=== PATIENT | female | born 1990 | race American Indian/Alaskan Native ===

== ENCOUNTER 2017-03-15 19:13 | Emergency (ER) | payer BC ==
[2017-03-15] MEDS ORDERED: ZOFRAN ONE (19:22)
[2017-03-15] MEDS ORDERED: ZOFRAN IV ONE ×2 (19:26→22:01)
--- NOTE | 2017-03-15 19:56 | Emergency Department Report ---
HPI - General Chief Complaint: Chest Pain Time Seen by Provider: 03/15/17 19:27 - HPI HPI: This is a 26-year-old Afro-[place]i female who presents to the emergency department via EMS from home with complaint of chest pain and some nausea without vomiting. Patient says that the symptoms began yesterday and have been going on since. She was given 325 mg of aspirin and 1 nitroglycerin sublingual prior to presentation with EMS without much relief. She has a history of previous WI and one stent placed about 2 years ago. 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 She is on Coumadin and says she is compliant with the medications. She says that she had a stress test about 6 months ago. She has a primary care physician but cannot really her name. Her prison guard is Ismael Arevalo. ED Past Medical Hx - Past Medical History Previous Medical History?: Yes Hx Heart Attack/AMI: Yes - Surgical History Past Surgical History?: No - Social History Smoking Status: Never Smoker ED Review of Systems ROS: Stated complaint: CHEST PAIN Other details as noted in HPI Comment: All other systems reviewed and negative Constitutional: denies: chills, fever Eyes: denies: eye pain, eye discharge, vision change ENT: denies: ear pain, throat pain Respiratory: denies: cough, wheezing Cardiovascular: chest pain. denies: palpitations Gastrointestinal: nausea. denies: abdominal pain, vomiting, diarrhea Genitourinary: denies: urgency, dysuria, discharge Musculoskeletal: denies: back pain, joint swelling, arthralgia Skin: denies: rash, lesions Neurological: denies: headache, weakness, paresthesias Physical Exam - Physical Exam Vital Signs: Vital Signs 03/15/17 19:20 Temperature 98.3 F Pulse Rate 66 Respiratory 20 Rate Blood Pressure 131/88 O2 Sat by Pulse 99 Oximetry Physical Exam: GENERAL: The patient is well-developed well-nourished. HEENT: Normocephalic. Atraumatic. Extraocular motions are intact. Patient has moist mucous membranes. Pupils equal reactive to light bilaterally. NECK: Supple. Trachea is midline. CHEST/LUNGS: Clear to auscultation. There is no respiratory distress noted. HEART/CARDIOVASCULAR: Regular. There is no tachycardia. There is no gallop rub or murmur. ABDOMEN: Abdomen is soft, nontender. Patient has normal bowel sounds. There is no abdominal distention. SKIN: Skin is warm and dry. NEURO: The patient is awake, alert, and oriented. The patient is cooperative. The patient has no focal neurologic deficits. The patient has normal speech. MUSCULOSKELETAL: There is no tenderness or deformity. There is no limitation range of motion. There is no evidence of acute injury. ED Course Vital Signs 03/15/17 19:20 Temperature 98.3 F Pulse Rate 66 Respiratory 20 Rate Blood Pressure 131/88 O2 Sat by Pulse 99 Oximetry ED Medical Decision Making - Lab Data Result diagrams: 03/15/17 19:56 03/15/17 19:56 - EKG Data -: EKG Interpreted by Me EKG shows normal: sinus rhythm, axis (LAD), intervals, QRS complexes (left anterior fascicular block, Q waves to the inferior leads,), ST-T waves (T-wave inversions to the lateral leads) Rate: normal - EKG Data When compared to previous EKG there are: previous EKG unavailable Interpretation: other (sinus rhythm, left axis deviation, left anterior fascicular block, Q waves in inferior leads, T-wave inversions to the anterior lateral leads) - Radiology Data Radiology results: image reviewed interpreted by me: Chest x-ray does not show any obvious pneumonia, pleural effusions, pneumothorax or any acute process. - Medical Decision Making This is a 26-year-old Afro-[place]i female presents to the emergency department with complaint of some chest discomfort and nausea without vomiting. There was some radiation down the left arm. Her EKG does not show any signs of ST elevation WI. Labs are mostly unremarkable with negative troponins 2 and a negative d-dimer. Her vital signs were stable throughout her ED course. There are no signs of infection. Chest x-ray does not show any pneumonia, pleural effusions or pneumothorax or any acute process. The patient already received aspirin in route. She was given something for pain and nausea here. She was reevaluated multiple times over multiple hours and a few of the times during reevaluation the patient was sleeping comfortably in the room on the [facility]. When she was woken up she says she is feeling improved. Patient had a negative stress test within the last 6 months. She has good follow-up with both primary care and cardiology. For all these reasons, the patient appears safe for discharge home at this time. She's been encouraged to return to the emergency department with any worsening of her symptoms or any acute distress. HEART Score for Major Cardiac Events from [email or web address] on 03/16/2017 All calculations should be rechecked by clinician prior to use RESULT SUMMARY: 3 points Low Score (0-3 points) Risk of MACE of 0.9-1.7%. INPUTS: History > 1 = Moderately suspicious EKG > 0 = Normal Age > 0 = < 45 Risk factors > 2 = 3 risk factors or history of atherosclerotic disease Troponin > 0 = normal limit - Differential Diagnosis WI, PE, pneumonia, CHF Critical Care Time: No Critical care attestation.: If time is entered above; I have spent that time in minutes in the direct care of this critically ill patient, excluding procedure time. ED Disposition Clinical Impression: Nausea, Subtherapeutic international normalized ratio (INR) Chest pain Qualifiers: Chest pain type: unspecified Qualified Code(s): R07.9 - Chest pain, unspecified Disposition: DISCHARGED TO HOME OR SELFCARE Is pt being admited?: No Condition: Stable Instructions: Chest Pain (ED) Additional Instructions: Please follow-up with your primary care doctor and prison guard in the next few days. Return to the emergency department with any worsening of your symptoms or any acute distress. Referrals: YOLANDA BUITRAGO [Other] - [facility] Time of Disposition: 00:53
[2017-03-15 20:07] LABS: Basophils % (Auto) 0.6 % (0.0-1.8); Eosinophils % (Auto) 1.1 % (0.0-4.3); Hematocrit 37.3 % (30.3-42.9); Hemoglobin 11.7 gm/dl (10.1-14.3); Mean Corpuscular HGB Conc 31 % (30-34); Mean Corpuscular Hemoglobin 22 pg (28-32); Mean Corpuscular Volume 69 fl (79-97); Platelet Count 289 K/mm3 (140-440); Red Blood Count 5.42 M/mm3 (3.65-5.03); Red Cell Distribution Width 15.9 % (13.2-15.2); White Blood Count 7.6 K/mm3 (4.5-11.0)
[2017-03-15 20:17] LABS: INR 1.73 (0.87-1.13)
[2017-03-15 20:18] LABS: Partial Thromboplastin Time 29.8 Sec. (24.2-36.6)
[2017-03-15 20:32] LABS: Alanine Aminotransferase 14 units/L (7-56); Albumin 3.4 g/dL (3.9-5); Albumin/Globulin Ratio 1.3 %; Anion Gap 15 mmol/L; BUN/Creatinine Ratio 16.66; Blood Urea Nitrogen 10 mg/dL (7-17); Calcium 8.8 mg/dL (8.4-10.2); Carbon Dioxide 24 mmol/L (22-30); Chloride 105.7 mmol/L (98-107); Creatine Kinase 65 units/L (30-135); Glucose 91 mg/dL (65-100); Lipase 61 units/L (13-60); Potassium 3.5 mmol/L (3.6-5.0); Sodium 141 mmol/L (137-145); Total Protein 6.1 g/dL (6.3-8.2)
[2017-03-15] MEDS ORDERED: MORPHINE IV ONE (20:35)
[2017-03-15 20:49] LABS: Urine Drugs of Abuse Note Disclamer
[2017-03-15 20:58] LABS: Bilirubin,Urine NEG (Negative); Blood,Urine NEG (Negative); Ketones,Urine NEG (Negative); Leukocyte Esterase,Urine NEG (Negative); Mucus,Urine FEW /HPF; Nitrite,Urine NEG (Negative); Protein,Urine <15 mg/dL mg/dL (Negative)
[2017-03-15 21:10] LABS: Creatine Kinase MB < 1.0 ng/mL (0.0-4.0)
[2017-03-15 21:15] LABS: Alkaline Phosphatase 55 units/L (35-129)
[2017-03-16 00:56] VITALS: BP 107/64
--- NOTE | 2017-03-16 08:24 | XRay Report ---
AP CHEST : 03/15/17 19:13:00 CLINICAL: Chest pain. COMPARISON:None FINDINGS: Normal heart and pulmonary vessels. The lungs are underexpanded but clear. The bones and soft tissues are unremarkable. IMPRESSION: Normal chest.
== END 2017-03-16 01:20 | disposition home or self-care (01) ==
LOC: ED 19:13
DX: R79.1 Abnormal coagulation profile (principal); R11.0 Nausea; R07.9 Chest pain, unspecified; I25.2 Old myocardial infarction
CPT/HCPCS: 36415; 71010; 80053; 80307; 81001; 82550; 82553; 83690; 84484; 85025; 85379; 85610; 85730; 93005; 93010; 96374; 96375; 99285; J2270; J2405